=== PATIENT | male | born 1960 | race Caucasian/White ===

== ENCOUNTER → 2016-10-05 | Outpatient (CLI) | payer BC ==
--- NOTE | 2016-10-05 11:30 | MR ---
EXAMINATION TYPE: MR knee RT wo/w con DATE OF EXAM: 10/05/2016 7:46 AM COMPARISON: Previous study dated 09/15/2014 HISTORY: denign neoplasm.hx synovial chondromatosis, patellofemoral pain TECHNIQUE: Multiplanar, multisequence images of the right knee is performed with 20 mL intravenous Mu ltiHance gadolinium contrast. FINDINGS: There is a small joint effusion which is partially decompressed into the gastrocnemius semi membranosus bursa. There is a well-defined 12.3 x 8.4 there is a 10.6 x 12.5 mm lesion eroding into the anterolateral as pect of the medial tibial plateau. This follows cartilage signal in all sequences. It does not demons trate enhancement. A second lesion just posterior to the medial meniscus measures 10.9 x 13.7 mm, unc hanged from previous. This lesion also follows cartilage signal in all series. There is no demonstrab le enhancement. There is no significant chondromalacia. There is minimal remodeling changes in the medial compartment of the knee. No definite tear of the menisci are seen. Both the anterior and posterior cruciate ligaments are intact. The medial and lateral collateral ligament complexes are intact. The iliotibial band inserts normally upon Gerdy's tubercle. The popliteus muscle and tendon are intact. The patellar and quadriceps tendons are intact. There is mild swelling in the Hoffa fat space. There is a small pseudocyst at the origin of the posterior cruciate ligament. IMPRESSION: 1. Small joint effusion. 2. 2 lesions within the joint following the cartilage signal in all sequences and may be chondral loo se bodies. The anterior lesion is eroding into the tibial plateau.
== END | disposition home or self-care (01) ==
LOC: RADMRIMAIN 06:26
PROVIDERS: ATTEND Orthopaedic Surgery
DX: M25.561 Pain in right knee (principal); M25.461 Effusion, right knee
CPT/HCPCS: 73723; A9577

== ENCOUNTER → 2017-01-20 | Outpatient (CLI) | payer BC ==
[2017-01-20 11:50] LABS: Anion Gap 11 mmol/L; Blood Urea Nitrogen 19 mg/dL (9-20); Calcium 9.7 mg/dL (8.4-10.2); Carbon Dioxide 26 mmol/L (22-30); Chloride 104 mmol/L (98-107); Magnesium 1.9 mg/dL (1.6-2.3); Non-African American GFR(MDRD) >60 (>60 ml/min/1.73 sqM); Sodium 141 mmol/L (137-145); Uric Acid 6.3 mg/dL (3.5-8.5)
== END ==
LOC: LABWHC1 10:54
PROVIDERS: ATTEND Otolaryngology
DX: R53.83 Other fatigue (principal); R49.8 Other voice and resonance disorders
CPT/HCPCS: 36415; 80051; 82310; 82565; 83735; 84439; 84443; 84520; 84550

== ENCOUNTER → 2017-03-29 | Outpatient (CLI) | payer BC ==
[2017-03-29 16:52] LABS: Blood Urea Nitrogen 20 mg/dL (9-20); Non-African American GFR(MDRD) >60 (>60 ml/min/1.73 sqM)
== END | disposition home or self-care (01) ==
LOC: LABMAIN 15:47
PROVIDERS: ATTEND Otolaryngology
DX: R43.0 Anosmia (principal)
CPT/HCPCS: 82565; 84520

== ENCOUNTER → 2017-03-30 | Outpatient (CLI) | payer BC ==
--- NOTE | 2017-03-31 15:40 | MR ---
EXAMINATION TYPE: MR brain wo/w con DATE OF EXAM: 03/30/2017 COMPARISON: NONE HISTORY: Visual disturbances, loss of smell TECHNIQUE: Multiplanar, multisequence images of the brain and brainstem is performed without and with IV contras t, utilizing 11 ml mL intravenous Gadavist . FINDINGS: There is of mild chronic sinusitis. Craniocervical junction is maintained. No midline shift or mass e ffect. There are couple punctate areas of abnormal signal within the white matter which are nonspecific. There is a small vague area of enhancement in the right temporal lobe measuring 5 mm. This is too sma ll to characterize potentially could be vascular. Small intracranial lesion is not entirely excluded. Benign-appearing nasopharyngeal cyst noted. IMPRESSION: 1. Vague 5 mm oval area of enhancement right temporal lobe. This could be related to tiny vascular an omaly. Intracranial mass not entirely excluded although there is no surrounding edema. Recommend 3 mo nth follow-up to assess for stability given the small size of the finding. 2. Minimal nonspecific white matter change.
== END | disposition home or self-care (01) ==
LOC: RADMRIMAIN 19:09
PROVIDERS: ATTEND Otolaryngology
DX: G93.89 Other specified disorders of brain (principal); R90.82 White matter disease, unspecified; R43.0 Anosmia
CPT/HCPCS: 70553; 36415; A9581

== ENCOUNTER → 2017-05-22 | Outpatient (CLI) | payer BC ==
[2017-05-22 12:23] LABS: Basophils # (A) 0.1 k/uL (0-0.2); Basophils % (A) 1 %; CH 27.7; CHCM 33.5; Eosinophils # (A) 0.1 k/uL (0-0.7); Eosinophils % (A) 2 %; HCT 45.6 % (39.0-53.0); HDW 2.67; HGB 14.8 gm/dL (13.0-17.5); Luc # (Auto) 0.12; Luc % (Auto) 3; Lymphocytes # (A) 0.9 k/uL (1.0-4.8); Lymphocytes % (A) 18 %; MCH 26.9 pg (25.0-35.0); MCHC 32.4 g/dL (31.0-37.0); Monocytes # (A) 0.4 k/uL (0-1.0); Monocytes % (A) 8 %; Neutrophils # (A) 3.2 k/uL (1.3-7.7); Neutrophils % (A) 68 %; RBC 5.49 m/uL (4.30-5.90); RDW 14.3 % (11.5-15.5); WBC 4.8 k/uL (3.8-10.6); WBC (Perox) 4.37
[2017-05-22 12:25] LABS: Appearance,Urine Clear (Clear); Bilirubin,Urine Negative (Negative); Glucose,Urine (UA) Negative (Negative); Ketones,Urine Negative (Negative); Leukocyte Esterase,Urine Negative (Negative); Nitrite,Urine Negative (Negative); PH, Urine 5.5 (5.0-8.0); Protein,Urine Trace (Negative); Specific Gravity,Urine 1.023 (1.001-1.035); UA Billing (MACRO vs. MICRO) CHEM; Urobilinogen,Urine <2.0 mg/dL (<2.0)
[2017-05-22 12:33] LABS: ALT 128 U/L (21-72); AST 52 U/L (17-59); Alkaline Phosphatase 76 U/L (38-126); Anion Gap 10 mmol/L; Blood Urea Nitrogen 16 mg/dL (9-20); Calcium 9.5 mg/dL (8.4-10.2); Carbon Dioxide 27 mmol/L (22-30); Chloride 102 mmol/L (98-107); Cholesterol 156 mg/dL (<200); Glucose 144 mg/dL (74-99); HDL Cholesterol 42 mg/dL (40-60); Non-African American GFR(MDRD) >60 (>60 ml/min/1.73 sqM); Potassium 4.1 mmol/L (3.5-5.1); Sodium 139 mmol/L (137-145); Total Bilirubin 0.8 mg/dL (0.2-1.3); Total Protein 7.7 g/dL (6.3-8.2)
== END | disposition home or self-care (01) ==
LOC: LAB 11:26
PROVIDERS: ATTEND Family Medicine
DX: Z00.00 Encounter for general adult medical examination without abnormal findings (principal); Z12.5 Encounter for screening for malignant neoplasm of prostate
CPT/HCPCS: 80053; 80061; 81003; 84153; 84443; 85025

== ENCOUNTER → 2017-11-08 | Outpatient (CLI) | payer BC ==
[2017-11-08 10:15] LABS: ALT 95 U/L (21-72); AST 48 U/L (17-59); Albumin 4.6 g/dL (3.5-5.0); Alkaline Phosphatase 78 U/L (38-126); Anion Gap 14 mmol/L; Blood Urea Nitrogen 21 mg/dL (9-20); Calcium 9.3 mg/dL (8.4-10.2); Carbon Dioxide 26 mmol/L (22-30); Chloride 102 mmol/L (98-107); Cholesterol 149 mg/dL (<200); GGT 332 U/L (15-73); Glucose 122 mg/dL (74-99); HDL Cholesterol 41 mg/dL (40-60); LDL Cholesterol,Calculated 62 mg/dL (0-99); Potassium 4.1 mmol/L (3.5-5.1); Sodium 142 mmol/L (137-145); Total Bilirubin 0.7 mg/dL (0.2-1.3); Triglycerides 230 mg/dL (<150)
[2017-11-08 16:46] LABS: LDL Cholesterol, Direct 72.9 mg/dL (0.0-129.0)
[2017-11-09 13:57] LABS: Ceruloplasmin 21.5 mg/dL (20.0-60.0)
== END | disposition home or self-care (01) ==
LOC: RADXRMAIN 08:45
PROVIDERS: ATTEND Family Medicine
DX: R79.89 Other specified abnormal findings of blood chemistry (principal); E78.5 Hyperlipidemia, unspecified
CPT/HCPCS: 80053; 80061; 82103; 82390; 82977; 83516; 83721; 86038

== ENCOUNTER → 2017-11-08 | Outpatient (CLI) | payer BC ==
--- NOTE | 2017-11-08 11:50 | MR ---
EXAMINATION TYPE: MR brain wo/w con DATE OF EXAM: 11/08/2017 COMPARISON: 03/30/2017 HISTORY: Sarcoidosis, unspecified, F/U TECHNIQUE: Multiplanar, multisequence images of the brain and brainstem is performed without and with IV contras t, utilizing 11 mL intravenous Gadavist . FINDINGS: Diffusion weighted images demonstrate no evidence of a recent infarct or other diffusion ab normality. There is no extra-axial fluid collection. Major intracranial flow voids are maintained. T here are tiny foci of T2/FLAIR hyperintensity within the subcortical white matter of the left posteri or frontal lobe, parietal lobe, and right parietal lobe. Prominent perivascular spaces are seen infer ior to the right basal ganglia. The ventricular system and cisternal spaces are normal in size and ap pearance. The brain volume is age appropriate. Midline structures demonstrate normal morphology. Incidental note is made of a small 4 mm pineal gla nd cyst. The craniocervical junction appears within normal limits. Post contrast images demonstrate no abnormal enhancement. The previously seen area of abnormal enhancement within the right temporal l obe is thought to represent pseudoenhancement an artifact from pulsation from the adjacent choroid pl exus. No abnormal enhancement in this region is identified on the current examination. The dural veno us sinuses appear patent. Mild mucosal thickening is seen of the maxillary sinuses and ethmoid sinuse s. The remaining visualized sinuses are clear and the globes are intact. There is no leptomeningeal e nhancement. IMPRESSION: 1. The previously seen patchy enhancement within the right temporal lobe is no longer visualized on t rachel's examination and thought to have represented pulsation artifact from the adjacent choroid plexu s on the prior exam. No abnormal intracranial enhancement or evidence of intracranial mass. No leptom eningeal enhancement in this patient with a history of sarcoid. No findings compatible with of neuros arcoid. 2. Mild burden of few scattered nonspecific white matter foci, most commonly on the basis of microang iopathy. These much less likely relate to sarcoid.
== END | disposition home or self-care (01) ==
LOC: RADMRIMAIN 10:50
PROVIDERS: ATTEND Specialist
DX: I73.9 Peripheral vascular disease, unspecified (principal); R90.89 Other abnormal findings on diagnostic imaging of central nervous system; I78.1 Nevus, non-neoplastic
CPT/HCPCS: 70553; A9581

== ENCOUNTER → 2018-04-25 | Outpatient (CLI) | payer BC ==
[2018-04-25 11:42] LABS: C Reactive Protein <5.0 mg/L (<10.0); Creatine Kinase 171 U/L (55-170); GGT 315 U/L (15-73); LDH 549 U/L (313-618)
[2018-04-25 12:10] LABS: Prostate Specific Antigen 1.19 ng/mL (0.00-4.00)
== END ==
LOC: LAB 10:58
PROVIDERS: ATTEND Family Medicine
DX: Z00.00 Encounter for general adult medical examination without abnormal findings (principal); E11.9 Type 2 diabetes mellitus without complications
CPT/HCPCS: 82550; 82977; 83615; 84153; 85652; 86140

== ENCOUNTER → 2018-09-14 | Outpatient (CLI) | payer BC ==
[2018-09-15 01:45] LABS: Hepatitis A Antibody IgM Non-Reactive (Non-Reactive); Hepatitis B Core IgM Non-Reactive (Non-Reactive); Hepatitis B Surface AB- Quant 3.5 mIU/mL; Hepatitis C IgG Antibody Non-Reactive (Non-Reactive)
[2018-09-15 13:08] LABS: Ceruloplasmin 21.3 mg/dL (20.0-60.0)
== END ==
LOC: LABMAIN 17:19
PROVIDERS: ATTEND Internal Medicine Gastroenterology
DX: R94.5 Abnormal results of liver function studies (principal)
CPT/HCPCS: 36415; 82103; 82390; 82728; 83516; 86038; 86705; 86706; 86709; 86803; 87340

== ENCOUNTER → 2019-03-06 | Outpatient (CLI) | payer BC ==
--- NOTE | 2019-03-06 14:11 | CT ---
EXAMINATION TYPE: CT chest wo con DATE OF EXAM: 03/06/2019 COMPARISON: 04/27/2012 HISTORY: 58-year-old male Trouble breathing, cough, recent lung infection TECHNIQUE: Contiguous axial scanning of the chest without IV contrast. Coronal and sagittal reconstru ctions performed. CT DLP: 527.7 mGycm Automated exposure control for dose reduction was used. FINDINGS: Heart normal size without pericardial effusion. Coronary vessel calcifications are present. Aorta normal caliber with conventional arch vessel branching anatomy. Calcified and noncalcified mediastinal and bilateral hilar lymph nodes are redemonstrated measuring u p to at least 1.6 cm. Assessment of hilar structures limited due to lack of IV contrast. There is thi ckening of the central bronchovascular bundles and extensive perihilar and peribronchial vascular nod ularity extending from the davon. Additional more peripherally located peribronchial vascular nodularity in the right upper lobe, media l right lower lobe. More focal area of nodularity measures 2.4 cm right midlung and 1.8 cm left midlung. Some additional patchy density posterior left base may represent atelectasis or scarring. No pleural effusion. Visualized upper abdomen shows no gross abnormality. There is a tiny anterior hilar splenule. Bones: Spondylotic change visualized lower cervical spine. IMPRESSION: 1. REDEMONSTRATED CALCIFIED AND NONCALCIFIED MEDIASTINAL AND BILATERAL HILAR LYMPHADENOPATHY. 2. EXTENSIVE NEW CENTRAL INTERSTITIAL NODULARITY AND THICKENING OF THE BRONCHOVASCULAR BUNDLES. EXTEN SIVE NEW NODULARITY EXTENDS FROM THE PERIHILAR REGIONS WITH THE LARGEST FOCAL AREAS MEASURING 2.4 CM RIGHT MIDLUNG AND 1.8 CM LEFT MIDLUNG. CONSIDER GRANULOMATOUS DISEASE SUCH SARCOIDOSIS OR ATYPICAL MYCOBACTERIAL OR FUNGAL INFECTIONS. ASSESSMENT OF ENVIRONMENTAL EXPOSURES CAN EXCLUDE A PNEUMOCONIOS IS. FOLLOW-UP RECOMMENDED.
== END | disposition home or self-care (01) ==
LOC: RADCTMAIN 10:39
PROVIDERS: ATTEND Family Medicine
DX: J98.09 Other diseases of bronchus, not elsewhere classified (principal); R59.1 Generalized enlarged lymph nodes; R91.8 Other nonspecific abnormal finding of lung field
CPT/HCPCS: 71250

== ENCOUNTER → 2019-05-21 | Outpatient (CLI) | payer BC ==
[2019-05-21 12:07] LABS: African American GFR (CKD) >90 (>60 ml/min/1.73 sqM); Blood Urea Nitrogen 19 mg/dL (9-20)
--- NOTE | 2019-05-21 13:18 | CT ---
EXAMINATION TYPE: CT chest w con DATE OF EXAM: 05/21/2019 COMPARISON: Chest CT dated 03/06/[address] of 04/27/2012 HISTORY: History of sarcoidosis and multiple pulmonary nodules. CT DLP: 674.4 mGycm. Automated Exposure Control for Dose Reduction was Utilized. TECHNIQUE: CT scan of the thorax is performed following with IV Contrast, patient injected with 100 mL of Isovue 300. FINDINGS: LUNGS: There is redemonstration of innumerable centralized pulmonary nodules. The largest pulmonary n odule on the right measures up to 2.3 cm, stable from the prior of 03/06/2019. The largest nodule on t he left is elongated along the interlobar fissure measuring approximately 1.8 cm, also stable from th e prior. Although there is no interval growth in comparison to prior 03/06/2019 there is only short-te rm stability. No new pleural effusion or pneumothorax. MEDIASTINUM: Bilateral hilar adenopathy is redemonstrated the largest conglomeration in the suprahila r region on the right and series 4 image 27 measuring 4.0 x 2.1 cm, similar to the prior given lack o f intravenous contrast on the prior exam. Subcarinal lymph node previously measured 1.6 cm in short a xis and now measures 1.7, overall similar in size. Moderate coronary artery calcifications. Mild mult ilevel degenerative changes of the spine. OTHER: Mild degree hepatic steatosis is seen. Angiomyolipoma of the left upper pole is incidentally n oted. IMPRESSION: Stability of the innumerable commonly central pulmonary nodules measuring up to 2.3 cm in the right and 1.8 cm on the left. These demonstrate only short-term stability and although may repre sent parenchymal nodules of underlying sarcoidosis alternative diagnoses are possible such as atypica l mycobacterial infection or less likely neoplasm. Bronchoscopy or PET/CT would be recommended for fu rther evaluation.
[2019-05-21 16:52] LABS: % Iron Saturation 32.92 (15.00-50.00); Iron 105 ug/dL (65-175); Total Iron Binding Capacity 319 ug/dL (228-460)
[2019-05-21 16:59] LABS: Ferritin 113.3 ng/mL (22.0-322.0)
[2019-05-21 20:02] LABS: EBV-EA (IgG) <0.2 AI; EBV-EBNA(IgG) >8.0 AI; EBV-VCA (IgG) >8.0 AI; EBV-VCA (IgM) <0.2 AI
[2019-05-22 11:14] LABS: Ceruloplasmin 21.2 mg/dL (20.0-60.0)
[2019-05-22 11:55] LABS: Angiotensin-1 Converting Enz. 11 U/L (8-52)
[2019-05-22 14:04] LABS: C-ANCA <1:20 Titer (<1:20)
== END | disposition home or self-care (01) ==
LOC: RADCTMAIN 11:07
PROVIDERS: ATTEND Internal Medicine Critical Care Medicine
DX: R91.1 Solitary pulmonary nodule (principal); D86.9 Sarcoidosis, unspecified; R06.2 Wheezing; R89.0 Abnormal level of enzymes in specimens from other organs, systems and tissues; K22.70 Barrett's esophagus without dysplasia; Z80.0 Family history of malignant neoplasm of digestive organs; Z86.010 Personal history of colon polyps; E11.9 Type 2 diabetes mellitus without complications; R93.89 Abnormal findings on diagnostic imaging of other specified body structures
CPT/HCPCS: 86255; 86665 ×2; 86663; 82728; 82565; 82164; 83540; 83550; 84520; 82103; 86664; 86644; 86645; 82390; 71260; 36415; Q9967

== ENCOUNTER → 2019-10-02 | Outpatient (CLI) | payer BC ==
[2019-10-02 09:53] LABS: African American GFR (CKD) >90 (>60 ml/min/1.73 sqM); Blood Urea Nitrogen 22 mg/dL (9-20); Non-African American GFR(CKD) >90 (>60 ml/min/1.73 sqM)
[2019-10-02 10:26] LABS: HCT 43.4 % (39.0-53.0); HGB 14.8 gm/dL (13.0-17.5); MCH 28.3 pg (25.0-35.0); MCHC 34.1 g/dL (31.0-37.0); MCV 83.2 fL (80.0-100.0); Mean Platelet Volume 6.6; Platelet Count 253 k/uL (150-450); RBC 5.22 m/uL (4.30-5.90); RDW 12.9 % (11.5-15.5); WBC 4.6 k/uL (3.8-10.6)
[2019-10-02 10:34] LABS: ALT 121 U/L (4-49); AST 72 U/L (17-59); Albumin 4.8 g/dL (3.5-5.0); Alkaline Phosphatase 48 U/L (38-126); Anion Gap 11 mmol/L; Calcium 9.6 mg/dL (8.4-10.2); Carbon Dioxide 24 mmol/L (22-30); Chloride 101 mmol/L (98-107); Cholesterol 145 mg/dL (<200); Glucose 114 mg/dL (74-99); HDL Cholesterol 45 mg/dL (40-60); LDL Cholesterol,Calculated 59 mg/dL (0-99); Sodium 136 mmol/L (137-145); Total Bilirubin 1.2 mg/dL (0.2-1.3); Total Protein 7.7 g/dL (6.3-8.2); Triglycerides 207 mg/dL (<150)
--- NOTE | 2019-10-02 10:36 | CT ---
EXAMINATION TYPE: CT chest w con DATE OF EXAM: 10/02/2019 COMPARISON: 05/21/2019 HISTORY: 59-year-old male shortness of breath, Dyspnea, abnormal findings (prior sarcoid diagnosis) TECHNIQUE: Contiguous axial scanning of the chest after the administration of 100 mL of Isovue 300. Coronal/sagittal reconstructions performed. CT DLP: 667.9mGycm. Automatic exposure control utilized for a dose reduction. FINDINGS: Heart normal size without pericardial effusion. Extensive three-vessel coronary artery calcifications are present. Aorta normal caliber with conventional arch was a branching anatomy. Redemonstrated calcified and noncalcified mediastinal and hilar lymphadenopathy. Lymph nodes measure up to 3.8 x 1.8 cm right hilum, 1.2 cm AP window, and 1.7 cm in the subcarinal region. Extensive peribronchial vascular nodularity extending within the upper and midlungs and to a lesser e xtent within the right lower lobe is redemonstrated, unchanged from 03/06/2019, largest conglomerate n odules right and left midlungs measuring 2.1 and 1.8 cm, respectively, also unchanged. No new or enlarging nodules are seen No consolidation or pleural effusion. Low attenuation of the hepatic parenchyma suggesting underlying fatty infiltration. Tiny anterior spl enule. Bones: No osseous destructive process. IMPRESSION: 1. Calcified and noncalcified mediastinal and hilar lymphadenopathy stable back to 04/27/2012 suggest ing a benign etiology such as sarcoidosis or other granulomatous disease. 2. The peribronchovascular nodularity with an upper to mid lung predominance but also to a lesser ext ent within the right lower lobe with largest nodules measuring up to 2.1 and 1.8 cm remain unchanged for 7 months. Differential considerations are similar including sarcoidosis, other granulomatous dise ase including atypical fungal/mycobacterial infection, and pneumoconiosis. 3. CAD.
[2019-10-02 10:41] LABS: Potassium 4.6 mmol/L (3.5-5.1)
[2019-10-02 23:12] LABS: Hemoglobin A1C 6.6 % (4.0-6.0)
== END | disposition home or self-care (01) ==
LOC: RADCTMAIN 09:11
PROVIDERS: ATTEND Internal Medicine Critical Care Medicine
DX: R59.0 Localized enlarged lymph nodes (principal); I25.10 Atherosclerotic heart disease of native coronary artery without angina pectoris; R91.8 Other nonspecific abnormal finding of lung field; R06.2 Wheezing; D86.9 Sarcoidosis, unspecified; R93.89 Abnormal findings on diagnostic imaging of other specified body structures; R06.02 Shortness of breath
CPT/HCPCS: 80061; 80053; 84443; 85027; 83036; 71260; 36415; Q9967

== ENCOUNTER → 2020-05-15 | Outpatient (CLI) | payer BC ==
[2020-05-15 11:43] LABS: Albumin 4.5 g/dL (3.5-5.0); Bilirubin, Delta 0.3 mg/dL (0.0-0.2); Bilirubin,Unconjugated 0.5 mg/dL (0.0-1.1); Total Bilirubin 0.8 mg/dL (0.2-1.3); Total Protein 7.2 g/dL (6.3-8.2)
== END | disposition home or self-care (01) ==
LOC: LAB 10:55
PROVIDERS: ATTEND Internal Medicine Gastroenterology
DX: K22.70 Barrett's esophagus without dysplasia (principal); D37.1 Neoplasm of uncertain behavior of stomach
CPT/HCPCS: 80076; 82977

== ENCOUNTER → 2020-06-26 | Outpatient (CLI) | payer BC ==
[2020-06-26 19:32] LABS: % Iron Saturation 30.65 (15.00-50.00)
[2020-06-26 19:40] LABS: Ferritin 297.1 ng/mL (22.0-322.0)
== END | disposition home or self-care (01) ==
LOC: RADXRMAIN 07:30
PROVIDERS: ATTEND Internal Medicine Gastroenterology
DX: R74.01 Elevation of levels of liver transaminase levels (principal)
CPT/HCPCS: 80061; 82728; 83540; 83550

== ENCOUNTER → 2020-07-30 | Outpatient (CLI) | payer BC ==
[2020-07-30 07:44] LABS: African American GFR (CKD) >90 (>60 ml/min/1.73 sqM); Blood Urea Nitrogen 19 mg/dL (9-20); Non-African American GFR(CKD) >90 (>60 ml/min/1.73 sqM)
--- NOTE | 2020-07-30 08:42 | CT ---
EXAMINATION TYPE: CT chest w con DATE OF EXAM: 07/30/2020 COMPARISON: 10/02/2019 HISTORY: 60-year-old male D86.9 Sarcoidosis TECHNIQUE: Contiguous axial scanning of the chest after the administration of 100 mL of Isovue 300. Coronal/sagittal reconstructions performed. CT DLP: 546.3mGycm. Automatic exposure control utilized for a dose reduction. FINDINGS: Heart normal size without pericardial effusion. Three-vessel coronary artery calcifications are redem onstrated. Aorta normal caliber with conventional arch was a branching anatomy. Redemonstrated calcified and noncalcified mediastinal and hilar lymphadenopathy. Lymph nodes measure up to 1.7 cm in the subcarinal region and 3.3 cm and the right hilum, not significantly changed. Left AP window lymph node slightly larger 1.4 cm versus 1.2 cm, previously. Extensive peribronchovascular nodularity extending within the upper and midlungs and to a lesser exte nt within the right lower lobe is redemonstrated, largest conglomerate nodules right and left midlung s measuring 3.0 x 1.9 cm and 1.8 cm, respectively. This is slightly increased on the right where it m easured 2.1 cm, previously. Scattered pulmonary nodules are unchanged. No other new or enlarging nodules are seen. No consolidat ion or pleural effusion. Tiny hiatal hernia. Low attenuation of the hepatic parenchyma suggesting underlying fatty infiltratio n. Tiny anterior splenule. Mild diverticular change of the hepatic flexure of the colon. Bones: No osseous destructive process. IMPRESSION: 1. Redemonstrated calcified and noncalcified mediastinal and hilar lymph nodes, scattered pulmonary n odules, as well as peribronchovascular thickening and nodularity with an upper to midlung predominanc e, largely stable, in keeping with patient's history of sarcoidosis. 2. Conglomerate right perihilar nodule slightly larger at 3.0 x 1.9 cm versus 2.1 cm, previously. AP window lymph node also slightly larger at 1.4 cm versus 1.2 cm, previously. 3. CAD. Tiny hiatal hernia and hepatic steatosis.
== END | disposition home or self-care (01) ==
LOC: RADCTMAIN 07:18
PROVIDERS: ATTEND Internal Medicine Critical Care Medicine
DX: I25.10 Atherosclerotic heart disease of native coronary artery without angina pectoris (principal); K44.9 Diaphragmatic hernia without obstruction or gangrene; J98.09 Other diseases of bronchus, not elsewhere classified; R59.1 Generalized enlarged lymph nodes; R91.8 Other nonspecific abnormal finding of lung field; Z87.09 Personal history of other diseases of the respiratory system
CPT/HCPCS: 82565; 84520; 71260; 36415; Q9967

== ENCOUNTER → 2020-09-08 | Outpatient (CLI) | payer BC ==
[2020-09-08 08:36] LABS: Basophils % (A) 1 %; Eosinophils # (A) 0.2 k/uL (0-0.7); Eosinophils % (A) 4 %; HCT 43.4 % (39.0-53.0); HGB 14.8 gm/dL (13.0-17.5); Lymphocytes # (A) 0.5 k/uL (1.0-4.8); Lymphocytes % (A) 14 %; MCH 28.9 pg (25.0-35.0); MCHC 34.1 g/dL (31.0-37.0); MCV 84.6 fL (80.0-100.0); Mean Platelet Volume 6.5; Monocytes # (A) 0.3 k/uL (0-1.0); Monocytes % (A) 9 %; Neutrophils # (A) 2.6 k/uL (1.3-7.7); Neutrophils % (A) 69 %; Platelet Count 209 k/uL (150-450); RBC 5.14 m/uL (4.30-5.90); RDW 12.7 % (11.5-15.5); WBC 3.7 k/uL (3.8-10.6)
[2020-09-08 08:45] LABS: Albumin 4.3 g/dL (3.5-5.0); Bilirubin,Unconjugated 0.8 mg/dL (0.0-1.1); Total Bilirubin 0.8 mg/dL (0.2-1.3); Total Protein 6.5 g/dL (6.3-8.2)
== END | disposition home or self-care (01) ==
LOC: RADXRMAIN 08:02
PROVIDERS: ATTEND Internal Medicine Gastroenterology
DX: K22.70 Barrett's esophagus without dysplasia (principal); R74.02 Elevation of levels of lactic acid dehydrogenase [LDH]; Z80.0 Family history of malignant neoplasm of digestive organs
CPT/HCPCS: 80076; 85025